=== PATIENT | male | born 1995 | race Caucasian/White ===

== ENCOUNTER → 2021-05-24 12:42 | Outpatient (CLI) | payer OTHER, SELFPAY ==
[2021-05-24 14:12] LABS: COVID19 -Nasal RAPID Negative (Negative)
== END ==
PROVIDERS: Visit Provider Physician Assistant
DX: Z20.822 Contact with and (suspected) exposure to COVID-19 (principal); R53.83 Other fatigue
CPT/HCPCS: 87635